=== PATIENT | male | born 1995 | race Hispanic/Latino ===

== ENCOUNTER 2017-12-26 10:50 | Emergency (ER) | payer OTHER ==
[2017-12-26 10:54] VITALS: TEMP 98; O2SAT 99
[2017-12-26 10:55] VITALS: BMI 24.3
[2017-12-26] MEDS ORDERED: Lidocaine 1% Inj (20ml) IJ ONE (11:29)
[2017-12-26] MEDS ORDERED: ceFAZolin 1 GM in Sodium Chloride 0.9% 100 ML IVPB ONE (11:29)
[2017-12-26] MEDS ORDERED: Tdap Vaccine 0.5 ml Vial (10-64 yrs) IM ONE ×2 (11:29→12:44)
--- NOTE | 2017-12-26 11:29 | ED PDOC ---
HPI: Skin/Bite Injury Time Seen by Provider: 12/26/17 11:23 Chief Complaint (Nursing): Abnormal Skin Integrity Chief Complaint (Provider): Laceration History Per: Patient History/Exam Limitations: no limitations Onset/Duration Of Symptoms: Mins (30) Current Symptoms Are (Timing): Still Present Location Of Injury: Right: Hand Quality Of Symptoms: Painful Severity: Mild Additional History Per: Patient Past Medical History Reviewed: Historical Data, Nursing Documentation, Vital Signs Vital Signs: Last Vital Signs Temp 98 F 12/26/17 10:54 Pulse 90 12/26/17 10:54 Resp BP 136/81 12/26/17 10:54 Pulse Ox 99 12/26/17 13:26 - Family History Family History: States: Unknown Family Hx - Home Medications Home Medications: Ambulatory Orders Medication Instructions Recorded Cephalexin [cephalexin] 500 mg PO QID #40 cap 12/26/17 - Allergies Allergies/Adverse Reactions: Allergies Allergy/AdvReac Type Severity Reaction Status Date / Time raw vegetable Allergy RASH Verified 12/26/17 11:16 Review of Systems ROS Statement: Except As Marked, All Systems Reviewed And Found Negative Skin: Positive for: Other (laceration) Physical Exam - Reviewed Nursing Documentation Reviewed: Yes Vital Signs Reviewed: Yes - Physical Exam Appears: Positive for: Well, No Acute Distress, In Acute Distress Head Exam: Positive for: ATRAUMATIC, NORMAL INSPECTION, NORMOCEPHALIC Skin: Positive for: Normal Color (four cm laceration over the MCP of the second digit of the right hand; bleeding is controlled and pt is hemodynamically stable ), Warm, Dry - ECG O2 Sat by Pulse Oximetry: 99 Medical Decision Making Medical Decision Making: R/o FB IV abx 1g ancef suture repair with 6 3-0 sutures discharge with keflex 500 qid x10 Disposition - Clinical Impression Clinical Impression: Laceration of hand - Patient ED Disposition Is Patient to be Admitted: No Doctor Will See Patient In The: Office Counseled Patient/Family Regarding: Diagnosis, Need For Followup, Rx Given - Disposition Disposition: Routine/Home Disposition Time: 13:32 Condition: STABLE Additional Instructions: suture removal in seven days Prescriptions: Cephalexin [cephalexin] 500 mg PO QID #40 cap Instructions: Laceration Repair, Stitches, Laceration Repair With Stitches (DC) , Laceration Infection (DC) Forms: Snipshot (Swedish)
[2017-12-26] MEDS ORDERED: Lidocaine 2% Inj (20ml) INFIL ONE (12:47)
--- NOTE | 2017-12-26 13:29 | ED PDOC ---
Procedures - Time-Out Type of Procedure: sutures Site of Procedure: right hand, volar side Correct Patient: Yes Correct Procedure: Yes Correct Site Marked: Yes X-Ray Marked: Yes - Laceration/Wound Repair Right Posterior Volar Hand Wound's Depth, Shape: linear Wound Explored: clean Irrigated w/ Saline (ccs): 500 Betadine Prep?: Yes Anesthesia: 1% Lidocaine Volume Anesthetic (ccs): 4 Wound Repaired With: Sutures Suture Size/Type: 3:0, nylon Number of Sutures: 6 Layer Closure?: No Wound Complexity: Simple Sterile Dressing Applied?: Yes Splint Applied?: No Progress: suture removal in seven days
--- NOTE | 2017-12-26 16:35 | RAD ---
PROCEDURE: Right Hand Radiographs. HISTORY: r/o fb COMPARISON: None. FINDINGS: BONES: Normal. No fracture. JOINTS: Normal. No osteoarthritic changes. SOFT TISSUES: No radiopaque foreign body noted in the right OTHER FINDINGS: None. IMPRESSION: Normal right hand radiographs.
[2017-12-26 19:35] VITALS: BP 130/82; PULSE 87; RESP 20
== END 2017-12-26 14:25 | disposition home or self-care (01) ==
LOC: H.ER 10:50
DX: S61.210A Laceration without foreign body of right index finger without damage to nail, initial encounter (principal); Z23 Encounter for immunization; W25.XXXA Contact with sharp glass, initial encounter; Y93.G1 Activity, food preparation and clean up
CPT/HCPCS: 12002; 73130; 90471; 90715; 96365; 99283; J0690